=== PATIENT | male | born 1995 | race Caucasian/White ===

== ENCOUNTER 2017-10-23 21:33 | Emergency (ER) | payer OTHER ==
[~2017-10-23] VITALS: Ht 172.7 cm; Wt 81.7 kg
[2017-10-24] MEDS ORDERED: CLOZAPINE200 MG PO (09:38)
[2017-10-24] MEDS ORDERED: FLAX OIL1000 MG PO (09:39)
[2017-10-24] MEDS ORDERED: HALOPERIDOL2 MG PO (09:39)
[2017-10-24] MEDS ORDERED: EFFEXOR XR75 MG PO (09:40)
[2017-10-24] MEDS ORDERED: INDERAL XL80 MG PO (09:40)
[2017-10-24] MEDS ORDERED: BENZTROPINE MESY1 MG PO (09:41)
[2017-10-24] MEDS ORDERED: CLONAZEPAM0.5 MG PO (09:41)
[2017-10-24] MEDS ORDERED: BACTRIM DS TAB1 EACH PO (10:32)
[2017-11-29] MEDS ORDERED: CLOZAPINE200 MG PO (01:16)
[2017-11-29] MEDS ORDERED: PROPRANOLOL HCL80 M1 PO (01:16)
[2017-11-29] MEDS ORDERED: VENLAFAXINE HCL75 M1 PO (01:16)
[2017-11-29] MEDS ORDERED: HALOPERIDOL2 MG PO (01:16)
== END 2017-10-24 02:45 | disposition home or self-care (01) ==
LOC: ED 21:33
PROC: 0T9B70Z Drainage of Bladder with Drainage Device, Via Natural or Artificial Opening (ICD-10-PCS; principal; 2017-10-23)
DX: F10.129 Alcohol abuse with intoxication, unspecified (principal); Z79.899 Other long term (current) drug therapy; Y90.8 Blood alcohol level of 240 mg/100 ml or more
CPT/HCPCS: 51702; 80053; 81001; 85025; 99283; G0480; J7030

== ENCOUNTER 2017-10-24 09:21 | Emergency (ER) | payer OTHER ==
[~2017-10-24] VITALS: Ht 172.7 cm; Wt 81.7 kg
[2017-10-24] MEDS ORDERED: CLOZAPINE200 MG PO (09:38)
[2017-10-24] MEDS ORDERED: HALOPERIDOL2 MG PO (09:39)
[2017-10-24] MEDS ORDERED: FLAX OIL1000 MG PO (09:39)
[2017-10-24] MEDS ORDERED: EFFEXOR XR75 MG PO (09:40)
[2017-10-24] MEDS ORDERED: INDERAL XL80 MG PO (09:40)
[2017-10-24] MEDS ORDERED: BENZTROPINE MESY1 MG PO (09:41)
[2017-10-24] MEDS ORDERED: CLONAZEPAM0.5 MG PO (09:41)
[2017-10-24] MEDS ORDERED: BACTRIM DS TAB1 EACH PO (10:32)
[2017-11-29] MEDS ORDERED: HALOPERIDOL2 MG PO (01:16)
[2017-11-29] MEDS ORDERED: CLOZAPINE200 MG PO (01:16)
[2017-11-29] MEDS ORDERED: PROPRANOLOL HCL80 M1 PO (01:16)
[2017-11-29] MEDS ORDERED: VENLAFAXINE HCL75 M1 PO (01:16)
== END 2017-10-24 11:55 | disposition home or self-care (01) ==
LOC: ED 09:21
DX: T83.098A Other mechanical complication of other urinary catheter, initial encounter (principal); Z79.899 Other long term (current) drug therapy
CPT/HCPCS: 76857; 81001; 85025; 87088; 99284